=== PATIENT | male | born 1985 | race Caucasian/White ===

== ENCOUNTER 2024-08-07 09:42 | Outpatient (CLI) | payer OTHER, SELFPAY ==
--- NOTE | 2024-08-07 10:00 | CT_ITS ---
FINAL REPORT TECHNIQUE: Axial images through the pelvis were performed by computed tomography after the administration of IV contrast. Sagittal and coronal reconstruction images were performed. This study was performed with techniques to keep radiation doses as low as reasonably achievable (ALARA). Individualized dose reduction techniques using automated exposure control or adjustment of mA and/or kV according to the patient's size were employed. CLINICAL HISTORY: Left lower quad pain, LLQ mass? anterior left iliac crest area COMPARISON: None FINDINGS: There is no acute fracture or dislocation identified. The appendix appears unremarkable. There is no intrapelvic inflammation or fluid collection. There is a fat attenuation mass identified in the subcutaneous soft tissues of the left anterolateral pelvic wall. This mass measures 6.2 x 3.7 cm consistent with a lipoma and is well-seen on image 29 series 3. 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 There is endplate hypertrophy eccentric to the left. There is moderate left neural foraminal narrowing. 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 Degenerative changes without acute abnormality. Reviewed, Interpreted and Dictated by Nolan Tineo MD Transcribed by Shae Hernandez Authenticated and [facility]
[2024-08-07] MEDS: SODIUM CHLORIDE 0.9% 10ML SYR (RAD ONLY) 10 ML IV (10:08)
[2024-08-07] MEDS: IOPAMIDOL-370 (76%);100ML BOTTLE 75 ML IV (10:08)
== END 2024-08-07 23:59 | disposition home or self-care (01) ==
LOC: RAD 09:43
PROVIDERS: PCP Nurse Practitioner Family; Visit Provider Surgery
DX: D17.5 Benign lipomatous neoplasm of intra-abdominal organs (principal); M47.817 Spondylosis without myelopathy or radiculopathy, lumbosacral region; R10.32 Left lower quadrant pain
CPT/HCPCS: 72193; Q9967

== ENCOUNTER 2024-10-02 11:57 | Outpatient (CLI) | payer OTHER, SELFPAY ==
[2024-10-02 08:23] VITALS: BMI 30.9
--- OUTSIDE RECORDS SUMMARY | 2024-10-02 12:00 | XMS_ITS | Data Portability ---
Author Organization [place] - [facility] Address [address] [place] [address] Care Team Providers Care Automatic Presser Name Role Phone PRIMARY [facility] - EMPIRE Primary Care Provider Assessment Encounter Date Assessment Date Assessment LastModified by Organization Details LastModified Time 03/07/2021 03/07/2021 Treat at home with anti-inflammator y and/or pain medication and SIMENTAL for the first 24-48 hours after injury (Protect from further injury, Rest, Ice for 15-20 min every 60-90 min, Compression with elastic bandage, Elevation to prevent swelling.) After swelling and pain are reduced, patient may begin rehabilitation exercises to prevent stiffness, improve ROM, and restore tissue/joint flexibility and strength. Patient was encouraged to follow up if pain persists or if it is difficult to put weight on the injury after 2 weeks. Not available 03/07/2021 14:34:29 05/04/2021 05/04/2021 -will discuss results once we receive them. [email or web address] Not available 05/05/2021 15:49:32 02/09/2022 02/09/2022 Cough The patient presents dry cough. The patient's condition is worsening. Based on the findings today we will begin medication therapy. Further workup as below. Ddx includes: flu. Reviewed symptomatic care instructions, the expected course of these illnesses and explained that coughing can persist for some time. Provided precautions for signs of worsening disease and instructions on contacting us if symptoms worsen. [email or web address] Not available 02/09/2022 15:29:26 06/29/2022 06/29/2022 Patient presented for evaluation of painless mass on his left lower quadrant that is been present for the last 1 to 2 years. Patient states he has noticed a small increase in size over the last few months. He states he was told in the past this was a lipoma. Physical exam demonstrates a soft mobile mass consistent with lipoma. Patient was advised treatment options were to either do nothing or have surgical excision. Patient elected to continue without intervention has not called currently causing any issues. [email or web address] Not available 06/29/2022 14:30:18 Plan of Treatment Reminders Order Date Submit Date Provider Last Modified By Organization Details Last Modified Time Details Appointments None record ed. Lab rapid SARS CoV + SARS CoV 2 Ag, QL IA, respir atory specim en [facility], [address], [place], [address], 2 15:25:14 rapid flu (A+B) 2021 022 [email or web address] rt [facility], [address], [place], [address], 2 15:25:14 glucos e, finger stick, blood 2021 022 [facility], [address], [place], [address], 2 10:08:45 HbA1c (hemog lobin A1c), blood 2021 022 [facility], [address], [place], [address], 2 10:08:45 urinal ysis, dipsti ck 2021 022 camron [facility], [address] [facility], [place], [address], 2 16:11:49 semen analys is - fax result s to [phone] [address], [address] [place] [address], [place] Szym[place], [address], 2 10:17:33 testos terone , free + total, serum - fax result s to [phone] [facility], [address] [place] [address] [place], [address], 10:17:33 shbg (sex hormon e-bind ing globul in), serum - fax result s to [phone] [address] [facility], [address] [place] [address] [place], [address], 10:17:34 lh + FSH, serum - fax result s to [phone] [address] [facility], [address] [place] [address] [place], [address], 10:17:34 uric acid, serum or plasma 2020 021 KILLEEN [facility], [address], Chris [address], [place], [address], 08:20:05 BMP, serum or plasma 2020 021 COREY [facility], [address], Chris [address], [place], [address], 08:20:04 Referral None record ed. Procedures None record ed. Surgeries None record ed. Imaging XR, chest, 2 view - room 153 2021 [facility], [address], [place], [address], 12/02/202 2 16:07:19 XR, wrist, 2 view 2020 [email or web address] [facility], [address], [place], [address], 1 18:39:14 Medication Orders Bromfe d DM 2 mg-30 mg-10 mg/5 mL oral syrup 2021 022 [facility], [address] [place], [address], 3 13:09:16 Medrol (Drew) 4 mg tablet s in a dose pack 2021 [facility], [address] [place], [address], 3 13:09:25 albute rol sulfat e HFA 90 mcg/ac tuatio n aeroso l inhale r 2021 022 [facility], [address] [place], [address], 3 13:09:39 ceftri axone 1 gram soluti on for inject ion 2021 022 [email or web address] Not available 3 13:09:20 Solu-M edrol (PF) 125 mg/2 mL soluti on for inject ion 2021 022 [email or web address] Not available 3 13:09:30 naprox en 500 mg tablet 2020 [email or web address] [facility], [address] [place], [address], 2 14:27:21 Patient Targets Encounter Date Encounter Id Patient Goals Patient Target Last Modified By Organization Details Last Modified Time 02/09/2022 [id number] Avoid spread of infection, monitor for shortness of breath and dehydration . [email or web address] Not available 02/09/2022 15:29:40 Patient Instructions Encounter Date Encounter Id Patient Instructions Last Modified By Organization Details Last Modified Time 05/04/2021 [id number] semen analysis: care instructions [email or web address] Not available 05/04/2021 16:11:48 09/19/2021 [id number] high cholesterol: care instructions [email or web address] Not available 09/19/2021 10:08:45 hypoglycemia: care instructions [email or web address] Not available 09/19/2021 10:08:45 patient advised to eat regularly. breakfast and supper. snack in between schedule for an AWE. labs from showed hyperlipidemia. advised low cholesterol diet. needs lipids rechecked fasting [email or web address] Not available 09/19/2021 10:08:44 02/09/2022 [id number] influenza (flu): care instructions [email or web address] Not available 02/09/2022 15:25:15 Call if any questions or if symptoms worsen. [email or web address] Not available 02/09/2022 15:29:49 06/29/2022 [id number] lipoma: care instructions [email or web address] Not available 06/29/2022 14:30:04 Lipoma Call your doctor now or seek immediate medical care if: - You have signs of infection, such as: - Increased pain, swelling, warmth, or redness - Red streaks leading from the lipoma. - Pus draining from the lipoma. - A fever. Watch closely for changes in your health, and be sure to contact your doctor if: - The lipoma is growing or changing. - You do not get better as expected. [email or web address] Not available 06/29/2022 14:30:37 Discussed plan of care with the patient. Answered all of patient's questions. Patient agreeable to plan of care. [email or web address] Not available 06/29/2022 14:33:23 Reason for Referral None Reported. Results Created Date Observation Date Name Description Value Unit Range Abnormal Flag Note LastModifiedBy Organization Detail LastModifiedTime 03/07/20 21 03/08/2021 BASIC METAB OLIC PANEL (8) glucose 108 mg/dL 65-99 above high normal Not Available [facility] ([facility]) [address] [facility], [place], [address], 03/08/2021 08:20:04 03/07/20 21 03/08/2021 BASIC METAB OLIC PANEL (8) BUN 11 mg/dL 6-20 Not Available [facility] ([facility]) [address] [facility], [place], [address], 03/08/2021 08:20:04 03/07/20 21 03/08/2021 BASIC METAB OLIC PANEL (8) creatinine 0.73 mg/dL 0.76-1 .27 below low normal Not Available [facility] ([facility]) [address] [facility], [place], [address], 03/08/2021 08:20:04 03/07/20 21 03/08/2021 BASIC METAB OLIC PANEL (8) eGFR if nonafricn AM 121 mL/mi n/1.7 3 >59 Not Available [facility] ([facility]) [address] [facility], [place], [address], 03/08/2021 08:20:04 03/07/20 21 03/08/2021 BASIC METAB OLIC PANEL (8) eGFR if africn AM 140 mL/mi n/1.7 3 >59 In accor dance with recom menda tions from the NKF-A SN Task force , [facility] is in the proce ss of updat ing its eGFR calcu latio n to the 2020 CKD-E PI creat inine equat ion that estim ates kidne y funct ion witho ut a race varia ble. Not Available [facility] ([facility]) [address] [facility], [place], [address], 03/08/2021 08:20:04 03/07/20 21 03/08/2021 BASIC METAB OLIC PANEL (8) BUN/creatini ne ratio 15 9-20 Not Available [facility] ([facility]) [address] [facility], [place], [address], 03/08/2021 08:20:04 03/07/20 21 03/08/2021 BASIC METAB OLIC PANEL (8) sodium 138 mmol/ L 134-14 4 Not Available [facility] ([facility]) [address] [place], [address], 03/08/2021 08:20:04 03/07/20 21 03/08/2021 BASIC METAB OLIC PANEL (8) potassium 4.2 mmol/ L 3.5-5. 2 Not Available [facility] ([facility]) [address] [place], [address], 03/08/2021 08:20:04 03/07/20 21 03/08/2021 BASIC METAB OLIC PANEL (8) chloride 103 mmol/ L 96-106 Not Available [facility] ([facility]) [address] [place], [address], 03/08/2021 08:20:04 03/07/20 21 03/08/2021 BASIC METAB OLIC PANEL (8) carbon dioxide, total 21 mmol/ L 20-29 Not Available [facility] ([facility]) [address] [place], [address], 03/08/2021 08:20:04 03/07/20 21 03/08/2021 BASIC METAB OLIC PANEL (8) calcium 9.5 mg/dL 8.7-10 .2 Not Available [facility] ([facility]) [address] [place], [address], 03/08/2021 08:20:04 03/07/20 21 03/08/2021 URIC ACID uric acid 6.4 mg/dL 3.8-8. 4 Thera babita coon t for gout patie nts: <6.0 Not Available [facility] ([facility]) [address] [place], [address], 03/08/2021 08:20:05 05/04/19 22 05/04/2021 urina lysis , dipst ick Leukocytes Negati ve Not Available [facility] [address] [place], [address], 05/03/2021 09:05:19 05/04/19 22 05/04/2021 urina lysis , dipst ick Nitrite negati ve Not Available [facility] [address] [place], [address], 05/03/2021 09:05:19 05/04/19 22 05/04/2021 urina lysis , dipst ick Urobilinogen .2 Not Available [facility] [address] [place], [address], 05/03/2021 09:05:19 05/04/19 22 05/04/2021 urina lysis , dipst ick Protein Negati ve Not Available [facility] [address] [place], [address], 05/03/2021 09:05:19 05/04/19 22 05/04/2021 urina lysis , dipst ick pH 7.0 Not Available [facility] [address] [place], [address], 05/03/2021 09:05:19 05/04/19 22 05/04/2021 urina lysis , dipst ick Blood Negati ve Not Available [facility] [address] [place], [address], 05/03/2021 09:05:19 05/04/19 22 05/04/2021 urina lysis , dipst ick Specific [place] [address] [facility] [address] [place], [address], 05/03/2021 09:05:19 05/04/19 22 05/04/2021 urina lysis , dipst ick Ketone Negati ve Not Available [facility] [address] [place], [address], 05/03/2021 09:05:19 05/04/19 22 05/04/2021 urina lysis , dipst ick Bilirubin Negati ve Not Available [facility] [address] [place], [address], 05/03/2021 09:05:19 05/04/19 22 05/04/2021 urina lysis , dipst ick Glucose Negati ve Not Available [facility] [address] [place], [address], 05/03/2021 09:05:19 05/04/19 22 05/04/2021 urina lysis , dipst ick Appearance Clear Not Available [facility] [address] [place], [address], 05/03/2021 09:05:19 05/04/19 22 05/04/2021 urina lysis , dipst ick Color Yellow Not Available [facility] [address] [place], [address], 05/03/2021 09:05:19 09/20/19 22 09/19/2021 HbA1c (hemo globi n A1c), blood HbA1C 5.8 % Not Available [facility] [address], [place], [address], 09/19/2021 09:55:59 09/20/19 22 09/19/2021 gluco se, finge rstic k, blood Blood Glucose: mg/dl 100 Not Available [facility] [address], [place], [address], 09/19/2021 09:54:11 02/10/20 22 02/09/2022 rapid flu (A+B) Flu positi ve Not Available [facility] [address], [place], [address], 02/09/2022 14:54:20 02/10/20 22 02/09/2022 rapid flu (A+B) Type A Not Available [facility] [address], [place], [address], 02/09/2022 14:54:20 02/10/20 22 02/09/2022 rapid SARS CoV + SARS CoV 2 Ag, QL IA, respi rator y speci men SARS CoV antigen Negati ve Not Available [facility] [address], [place], [address], 02/09/2022 14:54:19 03/07/20 21 03/07/2021 XR, wrist , 2 view No observ ation record ed. [email or web address] [facility] [address], [place], [address], 03/09/2021 14:03:52 02/10/20 22 XR, chest , 2 view No observ ation record ed. [email or web address] [facility] [address], [place], [address], 02/09/2022 16:45:16 Result Notes None recorded. Problems Name Problem SNOMED Code Status Onset Date Resolution Date Notes Provider Name and Address Organization Details Recorded Time COVID-19 851874961 Active 021 Kirstie Stoddard MD [address], [place], [address], [place] - [facility] 1 13:15:51 Influenza caused by Influenza A virus 864030048 Active 022 Velma Marie APRN [address], [place], [address], [place] - [facility] 2 15:21:51 Acute bronchitis 32390190 Active 022 Velma Marie, [employer] [address], [place], [address], [place] - [facility] 2 15:23:55 Lipoma of skin 600875890 Active 023 Mazin Guille Salazarory, [employer] [address], [place], [address], [place] - [facility] 3 14:30:04 Problem Notes None recorded. Procedures Surgical History Date Name Laterality Status Provider Name and Address Organization Details Recorded Time 1 Diastolic B/P 80-89 mm Hg completed Radha Hennessy RN [address], [place], [address], [facility] - [facility] 05/05/2020 15:57:42 1 Systolic B/P 130-139 mm Hg completed Radha Hennessy RN [address], [place], [address], [facility] - [facility] 05/05/2020 15:57:37 1 A1C level 6.9 and below completed Radha Hennessy RN [address], [place], [address], [place] - [facility] 05/05/2020 15:57:46 Imaging Results None recorded. Procedure Notes None recorded. Medical Equipment None Reported. Allergies No known drug allergies Medications Name Sig Start Date Stop Date Status Note LastModified by Organization Details LastModified Time clindamycin HCl 300 mg capsule 05/05 completed Not Available Not Available Not Available ibuprofen 800 mg tablet 05/05 completed Not Available Not Available Not Available ceftriaxone 1 gram solution for injection Take 1 g every day by injection route for 1 day. 06/29 completed Not Available Not Available Not Available methylpredn isolone 4 mg tablets in a dose pack TAKE 6 TABS ON DAY 1, TAKE 5 TABS ON DAY 2, TAKE 4 TABS ON DAY 3, TAKE 3 TABS ON DAY 4, TAKE 2 TABS ON DAY 5, TAKE 1 ON DAY 6. TAKE WITH FOOD. 06/29 completed Not Available Not Available Not Available bromphenira mine-pseudo ephedrine-D M 2 mg-30 mg-10 mg/5 mL oral syrup TAKE 10 MILLILITE RS BY MOUTH EVERY 4 HOURS NEEDED. 06/29 completed Not Available Not Available Not Available naproxen 500 mg tablet TAKE (1) TABLET BY MOUTH TWICE A DAY WITH MEALS 05/04 completed Not Available Not Available Not Available Ventolin HFA 90 mcg/actuati on aerosol inhaler INHALE 2 PUFFS BY MOUTH EVERY 4 HOURS. 06/29 completed Not Available Not Available Not Available Solu-Medrol (PF) 125 mg/2 mL solution for injection Take 125 mg by injection route for 1 day. 06/29 completed Not Available Not Available Not Available Vitals Date Recorded Body height Body mass index (BMI) Body weight Respiratory rate Pain severity - 0-10 verbal numeric rating [Score] - Reported Oxygen saturation Oxygen saturation in Arterial blood by Pulse oximetry Heart rate Systolic And Diastolic Provider Name and Address Organization Details Last Updated DateTime 2 180.34 cm 34 kg/m2 469942. 54 g 14 /min 0 98 % 98 % 66 /min 136/80 mm[Hg] Vanessa Mir [place] - [facility] 2 14:29:23 Date Recorded Body height Body mass index (BMI) Body weight Respiratory rate Pain severity - 0-10 verbal numeric rating [Score] - Reported Heart rate Oxygen saturation Oxygen saturation in Arterial blood by Pulse oximetry Systolic And Diastolic Provider Name and Address Organization Details Last Updated DateTime 3 180.34 cm 34.4 kg/m2 287604. 32 g 16 /min 0 65 /min 97 % 97 % 120/72 mm[Hg] Bev José [place] - [facility] 3 13:11:36 Date Recorded Body height Body mass index (BMI) Body weight Body temperature Heart rate Oxygen saturation Oxygen saturation in Arterial blood by Pulse oximetry Respiratory rate Pain severity - 0-10 verbal numeric rating [Score] - Reported Systolic And Diastolic Provider Name and Address Organization Details Last Updated DateTime 2 180.34 cm 33.5 kg/m2 288467. 87 g 97.6 [degF] 65 /min 95 % 95 % 16 /min 0 125/80 mm[Hg] Tere Winn [place] - [facility] 2 09:53:52 Date Recorded Body height Body mass index (BMI) Body weight Pain severity - 0-10 verbal numeric rating [Score] - Reported Respiratory rate Oxygen saturation Oxygen saturation in Arterial blood by Pulse oximetry Heart rate Body temperature Systolic And Diastolic Provider Name and Address Organization Details Last Updated DateTime 2 180.34 cm 33.5 kg/m2 018344. 17 g 0 16 /min 95 % 95 % 72 /min 98.5 [degF] 115/74 mm[Hg] Rosalinda Tim [place] - [facility] 2 14:51:13 Date Recorded Body height Body mass index (BMI) Body weight Body temperature Heart rate Oxygen saturation Oxygen saturation in Arterial blood by Pulse oximetry Respiratory rate Pain severity - 0-10 verbal numeric rating [Score] - Reported Systolic And Diastolic Provider Name and Address Organization Details Last Updated DateTime 1 180.34 cm 34.1 kg/m2 005383. 64 g 97.7 [degF] 67 /min 99 % 99 % 18 /min 0 122/74 mm[Hg] Shelby Marie [place] - [facility] 1 14:16:24 Social History Question Answer Notes LastModified by Organizat ion Details LastModified Time Tobacco Smoking Status Never Smoker Radha Hennessy RN [address], [place], [address], [place] - [facility] 05/05/2020 15:35:47 Able To Swim? No [email or web address] Information not available 05/05/2020 Do You Have An Advance Directive? No [email or web address] Information not available 05/05/2020 Do You Wear A Helmet When Biking? No Information not available 05/05/2020 Are You Blind Or Do You Have Difficulty Seeing? No Information not available 05/04/2021 What Is Your Level Of Caffeine Consumption? Heavy [email or web address] Information not available 05/05/2020 How Much Tobacco Do You Chew? 2-4/day [email or web address] Information not available 05/05/2020 Are You Deaf Or Do You Have Serious Difficulty Hearing? No [email or web address] Information not available 05/04/2021 What Type Of Diet Are You Following? REGULAR [email or web address] Information not available 05/05/2020 Which Illicit Or Recreational Drugs Have You Used? Denies [email or web address] Information not available 05/05/2020 Hard Of Hearing Or Deaf In One Or Both Ears? Yes [email or web address] Information not available 05/05/2020 Legally Blind In One Or Both Eyes? No [email or web address] Information no t available 05/05/2020 Live Alone Or With Others? With Others [email or web address] Information not available 05/05/2020 What Was The Date Of Your Most Recent Tobacco Screening? 06/29/2022 [email or web address] Information not available 06/29/2022 How Many Children Do You Have? 2 [email or web address] Information not available 05/05/2020 Do You Use Protection During Sex? Usually [email or web address] Information not available 05/05/2020 What Is Your Relationship Status? [email or web address] Information not available 05/05/2020 Seat Belts Used Routinely Yes [email or web address] Information not available 05/05/2020 Are You Sexually Active? Yes Information not available 05/05/2020 Smoke Alarm In Home Yes [email or web address] Information not available 05/05/2020 Are You Passively Exposed To Smoke? Yes [email or web address] Information no t available 05/05/2020 General Stress Level Medium [email or web address] Information not available 05/05/2020 Do You Use Sunscreen Routinely? No [email or web address] Information not available 05/05/2020 On What Date Was Tobacco Cessation Counseling Provided? 08/29/2020 [email or web address] Information not available 08/29/2020 How Many Years Have You Smoked Tobacco? 32 [email or web address] Information not available 05/05/2020 Do You Have Difficulty Walking Or Climbing Stairs? No [email or web address] Information not available 05/04/2021 Sex: Male Functional Status Question Answer Note LastModified by Organizat ion Details LastModified Time What is your level of alcohol consumption? None Information not available 05/05/2020 Do you or have you ever used smokeless tobacco? Current snuff user [email or web address] Information not available 05/05/2020 Are you currently employed? Yes [email or web address] Information not available 05/05/2020 Do you have transportation difficulties? No [email or web address] Information not available 05/04/2021 Are you able to walk? YESWOREST [email or web address] Information not available 05/05/2020 Do you have difficulty doing errands alone? No Information not available 05/04/2021 Are you able to care for yourself independently? 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 No [email or web address] Information not available 05/04/2021 Do you or have you ever used e-cigarettes or vape? Never used electronic cigarettes [email or web address] Information not available 05/05/2020 What is your exercise level? Occasional [email or web address] Information not available 05/05/2020 Mental Status Question Answer Note LastModified by Organization D etails LastModified Time Do you have difficulty concentrating, remembering or making decisions? No [email or web address] Information no t available 05/04/2021 Family History Relationship Description Onset Age of this Age Resolved Age Notes LastModified by Organization Details LastModified Time Maternal Grandmother Diabetes mellitus [email or web address] Not available 2020 15:35:28 Mother Heart disease [email or web address] Not available 2020 15:35:40 Medical History Condition Response Pancreatitis N Coronary Artery Disease N Other N Gout N Atrial Fibrillation N congenital heart disease N Blood Diseases N Kidney Stones N Hyperthyroidism N Blood Transfusion N Rheumatoid arthritis N Erectile Dysfunction N amputation N Colonoscopy N Skin Lesions N COPD N Depression N Pneumonia N Incontinence N Murmur N Edema N Alzheimer's Disease N Migraine Headaches N Tobacco Abuse N Anxiety Disorder N Hemorrhoids N Muscle, Joint, or Bone Problems N Obesity N Vision or Eye Problems N Arthritis N Restless Leg Syndrome N Polyps N Infertility N Mental Disorder N Carpal Tunnel N Acid Reflux (GERD) N Cancer N Varicosities N Stroke N Tendonitis N Crohn's Disease N Hypercholesterolemia N Skin Cancer N Headaches N Fibromyalgia N Anal Fissure N Irritable Bowel Syndrome N Kidney Disease N Heart Problems N Ear or Hearing Problems N Hospitalizations N Gallstones N Kidney or Bladder Problems N Goiter N Acne N Skin Problems N Eating Disorder N Blevins's Esophagus N Hypertriglyceridemia N MRSA exposure N Constipation N Embolism N Vitamin B12 Deficiency N Deviated Septum N Tuberculosis N AIDS/HIV N Myocardial Infarction N Asthma N Mitral Valve Disorders N Vertigo N Hepatitis N Thyroid Cancer N Neuropathy N Pulmonary Embolism N History of DVT N Herniated Disc N Chronic Ear Infections N Chicken Pox N Autism Spectrum Disorder (ASD) N Von Willebrands Disease N Thrombophilias N Breast Cancer N Hernia N Plantar Fasciitis N Hospital Admission Other Than N Lung Disease N Hypothyroidism N Defects or Inherited Disease N Developmental or Behavioral Disorders N Breast Problem N Difficulty Swallowing N Ovarian Cyst N Anesthesia Complications N Testosterone Deficiency N Meniere's disease N Head Injury/Concussion N Interstitial Cystitis N Congenital Anomalies N Hypoglycemia N Blood clot N Vitamin D Deficiency N Cellulitis N Endometriosis N Fracture N Bladder or Kidney Problems N Colorectal Cancer N Liver Disease N Panic Disorder N Schizophrenia N Concussion N Spina Bifida N Allergies/Hayfever N Osteoarthritis N Parkinson's Disease N Disc Protrusion N STI N Esophagitis N Angina N Thyroid Problems N GI Problems N ADD/ADHD N Anemia N Multiple Sclerosis N Abnormal PAP N Lumbago N Mental Illness N Psychiatric Illness N Diabetes N Ovarian Cancer N Bedwetting N Degenerative Disc Disease N Seizures/Epilepsy N Congestive Heart Failure (CHF) N Hyperlipidemia N Syncope N Insomnia N Eczema N Abuse/Domestic Violence N Attention Deficient Disorder N Diverticulitis N Dementia N Ulcerative colitis N Cerebrovascular Disease N Depression N Guillain-[place] N Sleep Apnea N Aneurysm N Bronchitis N Heart Disease N Suicidal Ideation N Pre-Eclampsia N Hypertension N Osteoporosis N Immunizations Vaccine Type Date Status Note Provider Nam e and Address Organization Details Recorded Time Hep B, adolescent or pediatric 0 completed Rosalinda Tim null, [place] - [facility] 02/09/2022 14:51:37 Hep B, adolescent or pediatric 2 completed Rosalinda Tim [place] - [facility] 02/09/2022 14:51:37 MMR 0 completed Rosalinda Tim null[place] - [facility] 02/09/2022 14:51:37 Hep B, adolescent or pediatric 0 completed Rosal[place] Tim [place] [facility] 02/09/2022 14:51:37 Td (adult), 2 Lf tetanus toxoid, preservative free, adsorbed 3 completed Rosalinda Tim null[place] - [facility] 02/09/2022 14:51:37 Past Encounters Encounter ID Performer Location Encounter Start Date Encounter Closed Date Diagnosis/Indication Diagnosis SNOMED-CT Code Diagnosis ICD10 Code Diagnosis Note [id number] Brice Lucio PA-C [facility] [address] [place] [address] 05/05/2020 15:23:44 05/05/2020 17:05:11 Body mass index 30+ - obesity 601398488 Z68.33 Increased frequency of urination 581749395 R35.0 Hyperglycemia 00643429 R 73.9 Elevated blood-pressure reading without diagnosis of hypertension 950978848 R03.0 User of sm okeless tobacco 372834337 Z72.0 Lipoma of skin 433105158 D17.30 [id number] Celine Franco APRN [facility] [address] [address] 08/29/2020 15:16:24 08/29/2020 16:46:36 Mass of skin 451814235 R22.9 suspected lipoma Lipoma of skin 572024179 D17.30 [id number] Kirstie Stoddard MD [facility] [address] [place] [address] 11/07/2020 11:45:20 11/07/2020 12:28:07 Viral screening 876906694 Z11.52 COVID-19 522406536 U07.1 offered monoclonal antibody treatment; he declines now as he feels he is getting better. Encouraged him to call/seek tx with any worsening at all. Discussed we cannot use monoclonal therapy if someone has worsened to the point of requiring oxygen or if it is more than 10 days from the onset of symptoms. Influenza caused by Influenza B virus 96881760 J10.1 out of the window for tx with tamiflu [id number] Celine Franco APRN [facility] [address] [address] 03/07/2021 13:51:36 03/07/2021 14:44:49 Pain of wrist region 68888242 M25.532 Tendinitis of left wrist region 2678884245 1149704 M67.394 [id number] Esther Blair [facility] [address] [place] [address] 05/04/2021 14:20:22 05/04/2021 16:33:14 Body mass index 30+ - obesity 767459184 Z68.34 34 Fatigue 87909540 R53.83 Fertility problem 047672 06 N46.9 [id number] Dhruv Whelan MD [facility] [address] [place] [address] 09/19/2021 09:31:27 09/19/2021 10:31:02 [facility] [id number] E16.2 [facility] [id number] E78.5 [id number] Velma sotelo, [facility] [address] [place] [address] 02/09/2022 14:20:11 02/09/2022 16:05:13 Viral screening 597492121 Z11.59 Positive for flu A, discussed with patient. Influenza caused by Influenza A virus 066526894 J09.X2 Advised to increase liquids, rest this weekend. Will call patient with xray results when available. Acute bronchitis 6313363 2 J20.9 acute. [id number] Mazin Pérez, [facility] [address] [place] [address] [place] [address] 06/29/2022 12:56:20 06/29/2022 13:58:24 Lipoma of skin 424560957 D17.1 Establishe d DiagnosisM anagement: Patient able to schedule for excision at his [facility] up as needed. Health Concerns Section Related Observation LastModified by Organization Detai ls LastModified Time None Recorded Concern Status LastModified by Organization Details LastModified Time None Recorded Advance Directives Directive N: Payers Insurance Date Sequence Insurance Name Policy Number Policy Thomason Covered Member ID Thomason Member ID Guarantor Name 07/26/2022 1 [employer] [place] (MEDICAID HMO) Jono Soto [id number] Jono Soto 06/19/2021 2 [place] [id number] Jono [id number] Jono Soto 07/26/2022 2 [place] [id number] Jono [id number] Jono Soto 07/26/2022 [place] Jono Soto [id number] Jono Soto Notes Date Note Type Note Provider Name and Address Organization Details Recorded Time 03/07/2021 text/html 35 y/o male present today for left wrist pain. Patient denies any injury, pain started yesterday evening. Difficulty lifting or holding things with left hand right now. Denies any numbness, tingling, loss of sensation, change in color or temperature of hand/wrist. Celine Salvador [facility], [place] - [facility] 03/07/2021 14:37:46 05/04/2021 text/html problems-MaleReport ed by PatientGU ProblemsFor context, patient reportsnot sexually active(no known trauma). For associated symptoms, patient reportsno penile lesions/sores,no scrotal lesions/sores,no penile discharge,no flank pain,no jaundice,no blood in the urine,no pain during urination, andno impotence. reports he is concerned about being infertile. states his ex- and he were never able to have children. also states that his current had her tubes tied, and they were talking about her getting that reversed, but wanted to check to see if he was fertile first. reports was tested once and told sperm count was low. Esther Blair, [employer] [address], [place], [address], [facility] - [facility] 05/05/2021 15:49:53 09/19/2021 text/html 35 y/o male presents in office today with cc of sugar drop with vision problem ,patient reports that he is very busy working that he forgets to eat Dhruv Whelan MD [address], [place], [address], [facility] - [facility] 09/19/2021 10:09:18 02/09/2022 text/html ROS as noted in the HPI 36 y/o m presents today with sick children for cough, congestion, fever, headache, body aches and shortness of breath for 5 days. Feeling worse and requests chest xray. Velma truong, [employer] [address], [place], [address], [facility] - [facility] 02/09/2022 15:50:42 06/29/2022 text/html ROS as noted in the HPI Skin Mass Painless - Onset was 1-2 years ago, due- Symptoms described as painless skin mass located left abdomen- Occurs continous- Severity is mild- Aggravating factors: none- Alleviating factors: none- Negative ROS: No fever, skin changes, unintentional weight loss Mazin Pérez, [employer] [address], [place], [address], [place] - [facility] 06/29/2022 14:33:44
--- OUTSIDE RECORDS SUMMARY | 2024-10-02 12:00 | XMS_ITS | Continuity of Care Document ---
Author Organization [place] - [employer] [facility] [place], [facility] Address [address] [place] [address] Assessment Encounter Date Assessment Date Assessment LastModified by Organization Details LastModified Time 09/18/2024 09/18/2024 Monitor BP at home. We will request eye exam. Updated tdap today. Continue lifestyle changes. Follow up in 2 months to recheck BP and ANGELO's, he will keep BP log in meantime. Not available 09/24/2024 15:02:26 Plan of Treatment Reminders Order Date Submit Date Provider Last Modified By Organization Details Last Modified Time Details Appointments FOLLOW UP 30 2024 03:30P M Kemi Carlos Not available Not available Not available Lab glucose, fingerst ick, blood 2024 07 025 [facility] [place], [facility], [address] [place] [address], [place], [address], 09/18/2024 15:00:45 Referral None recorded . Procedures None recorded . Surgeries None recorded . Imaging None recorded . Medication Orders None recorded . Patient TargetsNo targets recorded. Patient Instructions Encounter Date Encounter Id Patient Instructions Last Modified By Organization Details Last Modified Time 09/18/2024 [id number] headache: care instructions Not available 09/18/2024 15:00:45 body mass index: care instructions Not available 09/24/2024 15:02:05 learning about healthy weight Not available 09/24/2024 15:02:05 Reason for Referral None Reported. Results Created Date Observation Date Name Description Value Unit Range Abnormal Flag Note LastModifiedBy Organization Detail LastModifiedTime 09/19/1909/18/2024 gluco se, finge rstic k, blood Blood Glucose: mg/dl 87 Not Available [address], [place], [address], 09/18/2024 14:46:22 Result Notes None recorded. Problems Name Problem SNOMED Code Status Onset Date Resolution Date Notes Provider Name and Address Organization Details Recorded Time Increased frequency of urination 296766304 Active 025 Kemi Carlos NP [address] [place] [address], [address], [employer] 5 16:20:55 Skin lesion 66937673 Active 025 Kemi Carlos NP [address] [place] [address], [address], [employer] 16:32:19 Headache 76885319 Active 025 Kemi Carlos NP [address] [place] [address], [address], [employer] 5 16:11:51 Polyuria 74237760 Active 025 Kemi Carlos NP [address] [place] [address], [address], [employer] 14:54:41 Problem Notes None recorded. Medical Equipment None Reported. Allergies No known drug allergies Medications Not known to be on any medication Vitals Date Recorded Body height Body mass index (BMI) Body weight Heart rate Oxygen saturation Oxygen saturation in Arterial blood by Pulse oximetry Systolic And Diastolic Provider Name and Address Organization Details Last Updated DateTime 5 177.8 cm 34.2 kg/m2 892692. 78 g 54 /min 98 % 98 % 133/71 mm[Hg] Mary Franco [employer] 14:46:03 Social History Question Answer Notes LastModified by Organizat ion Details LastModified Time Tobacco Smoking Status Never Smoker Mary hollingsworth [employer] 07/06/2024 15:54:01 Do You Have An Advance Directive? No [email or web address] Information n ot available 07/06/2024 Is Your Home Air Conditioned? Yes [email or web address] Information not available 07/06/2024 Do You Wear A Helmet When Biking? No Information not available 07/06/2024 Are You Blind Or Do You Have Difficulty Seeing? Yes [email or web address] Information n ot available 07/06/2024 What Is Your Level Of Caffeine Consumption? Heavy [email or web address] Information not available 07/06/2024 What Type Of Apartment Rental Clerk Do You Use? None Information not available 07/06/2024 In The 14 Days Before Symptom Onset, Have You Had Close Contact With A Laboratory-confirm ed COVID-19 While That Case Was Ill? No [email or web address] Information n ot available 07/06/2024 In The 14 Days Before Symptom Onset, Have You Had Close Contact With A Person Who Is Under Investigation For COVID-19 While That Person Was Ill? No [email or web address] Information not available 07/06/2024 Have You Been To An Area Known To Be High Risk For COVID-19? No [email or web address] Information not available 07/06/2024 Are You Deaf Or Do You Have Serious Difficulty Hearing? Yes [email or web address] Information not available 07/06/2024 What Type Of Diet Are You Following? REGULAR Information n ot available 07/06/2024 What Is The Highest Grade Or Level Of School You Have Completed Or The Highest Degree You Have Received? FB30442-0 [email or web address] Information not available 07/06/2024 Who Is Your Employer? [employer] [email or web address] Information not available 07/06/2024 Have There Been Any Changes To Your Family Or Social Situation? No [email or web address] Information no t available 07/06/2024 Are There Any Guns Present In Your Home? Yes [email or web address] Information not available 07/06/2024 Which Of Your Hands Is Dominant? Right [email or web address] Information n ot available 07/06/2024 What Is Your Home Situation? Both Parents [email or web address] Information not available 07/06/2024 Do You Have A Medical Power Of Game Author? No [email or web address] Information not available 07/06/2024 What Was The Date Of Your Most Recent Tobacco Screening? 09/18/2024 [email or web address] Information not available 09/18/2024 Are There Any Occupational Health Risks Where You Work? Yes [email or web address] Information not available 07/06/2024 Do You Have Any Pets? Yes Information not available 07/06/2024 Do You Use Protection During Sex? No Information not available 07/06/2024 What Is Your Relationship Status? Information not available 07/06/2024 Have You Repeated Any Grades? Yes Information not available 07/06/2024 Do You Use Your Seat Belt Or Car Seat Routinely? Yes Information not available 07/06/2024 Are You Sexually Active? Yes [email or web address] Information not available 07/06/2024 Do You Have Any Siblings? Yes [email or web address] Information not available 07/06/2024 Do You Have Smoke And Carbon Monoxide Detectors In Your Home? Yes [email or web address] Information not available 07/06/2024 Are You Passively Exposed To Smoke? No Information no t available 07/06/2024 Are There Any Smokers In Your House? No [email or web address] Information not available 07/06/2024 Do You Participate In Social Media? Yes [email or web address] Information not available 07/06/2024 What Types Of Sporting Activities Do You Participate In? Coon Hunting [email or web address] Information not available 07/06/2024 Do You Use Sunscreen Routinely? No Information not available 07/06/2024 Have You Recently Traveled Abroad? No Information not available 07/06/2024 Do You Have Difficulty Walking Or Climbing Stairs? No [email or web address] Information not available 07/06/2024 Do You Have Any Dietary Restrictions? No [email or web address] Information not available 07/06/2024 Sex: Unknown Functional Status Question Answer Note LastModified by Organizat ion Details LastModified Time Do you use any illicit or recreational drugs? No [email or web address] Information not available 07/06/2024 Do you or have you ever used any other forms of tobacco or nicotine? Yes [email or web address] Information not available 07/06/2024 What is your level of alcohol consumption? None Information not available 07/06/2024 Do you or have you ever used smokeless tobacco? Current snuff user 30+ years. Information not available 07/06/2024 Are you currently employed? Yes [email or web address] Information not available 07/06/2024 Do you have transportation difficulties? No Information not available 07/06/2024 Are you able to walk? YESWOREST [email or web address] Information not available 07/06/2024 Do you have difficulty doing errands alone? No [email or web address] Information not available 07/06/2024 Are you able to care for yourself independently? Yes [email or web address] Information not available 07/06/2024 Do you have difficulty dressing, bathing, grooming, or toileting? No [email or web address] Information not available 07/06/2024 Do you or have you ever used e-cigarettes or vape? Never used electronic cigarettes [email or web address] Information not available 07/06/2024 What is your exercise level? None [email or web address] Information not available 07/06/2024 Mental Status Question Answer Note LastModified by Organizat ion Details LastModified Time Do you feel stressed (tense, restless, nervous, or anxious, or unable to sleep at night)? [id number] Information not available 07/06/2024 Do you have difficulty concentrating, remembering or making decisions? No [email or web address] Information no t available 07/06/2024 Are you or have you been involved with bullying? No Information not available 07/06/2024 Family History Relationship Description Onset Age of this Age Resolved Age Notes LastModified by Organization Details LastModified Time Mother Hypercholest erolemia [email or web address] Not available 2024 15:54:01 Mother Hypertensive disorder [email or web address] Not available 2024 15:54:01 Unspecified Relation Heart disease [email or web address] Not available 2024 15:54:01 Maternal Grandmother Diabetes mellitus Not available 2024 15:54:01 Maternal Grandfather Alzheimer's disease Not available 2024 15:54:01 Medical History Condition Response Emergency room visit since last appointm ent. N Hospitalizations N Immunizations Vaccine Type Date Status Note Provider Nam e and Address Organization Details Recorded Time Tdap completed Mary hollingsworth, [place] - [employer] 09/18/2024 15:13:21 MMR 0 completed Not Available [facility] 09/18/2024 14:27:40 Hep B, adolescent or pediatric 0 completed Not Available [facility] 09/18/2024 14:27:40 Hep B, adolescent or pediatric 0 completed Not Available [facility] 09/18/2024 14:27:40 Hep B, adolescent or pediatric 2 completed Not Available [facility] 09/18/2024 14:27:40 Td (adult), 2 Lf tetanus toxoid, preservative free, adsorbed 3 completed Not Available [facility] 09/18/2024 14:27:40 Past Encounters Encounter ID Performer Location Encounter Start Date Encounter Closed Date Diagnosis/Indication Diagnosis SNOMED-CT Code Diagnosis ICD10 Code Diagnosis Note [id number] Kemi Carlos NP [address] [address] 09/18/2024 14:26:47 09/18/2024 15:04:09 Headache 09512832 R51.9 Polyuria 50043932 R35.89 Immunization due 5520607 08 Z23 Body mass index 30+ - obesity 735678636 Z68.34 Health Concerns Section Related Observation LastModified by Organization Detai ls LastModified Time None Recorded Concern Status LastModified by Organization Details LastModified Time None Recorded Payers Encounter Date Sequence Insurance Name Policy Number Policy Thomason Covered Member ID Thomason Member ID Guarantor Name 09/18/2024 1 RAMIROJORDAN [id number] Jono Soto [id number] Jono Soto Notes Date Note Type Note Provider Name and Address Organization Details Recorded Time 09/18/2024 text/html Patient presents for follow up. He is doing very well. He states his headaches have improved significantly. He cut sugary beverages (Alena 8) from his diet completely and he has not had any more episodes of dizziness or hypoglycemia. He has also lost 15 lb.He had a normal eye exam, but they thought he may actually have some HTN based on findings. Kemi Carlos NP [address] [place] [address], [address], [facility] [employer] 09/24/2024 15:02:57
--- OUTSIDE RECORDS SUMMARY | 2024-10-02 12:00 | XMS_ITS | Data Portability ---
Author Organization [employer] [facility] Address [address] [place] [address] Assessment Encounter Date Assessment Date Assessment LastModified by Organization Details LastModified Time 07/06/2024 07/06/2024 Patient to return for fasting labs. Referral to general surgery to evaluate lesion/mass for removal. Recommended scheduling eye exam. Keep ANGELO diary to see if there are any triggers for visual changes and headaches. UA negative. Encouraged patient to cut back on sugary beverages in diet. Follow up to be planned with lab results. Not available 07/09/2024 16:13:03 09/18/2024 09/18/2024 Monitor BP at home. We will request eye exam. Updated tdap today. Continue lifestyle changes. Follow up in 2 months to recheck BP and ANGELO's, he will keep BP log in meantime. Not available 09/24/2024 15:02:26 Plan of Treatment Reminders Order Date Submit Date Provider Last Modified By Organization Details Last Modified Time Details Appointments FOLLOW UP 30 2024 03:30P Kemi Mccall Not available Not available Not available Lab glucose, fingersti ck, blood [address], [place], [address], 09/18/2024 15:00:45 CMP, serum or plasma 2024 025 [facility], [address] [place] [address], [place], [address], 07/12/2024 10:07:31 CBC w/ auto diff 2024 025 [facility] [address] [place] [address], [id number], 07/12/2024 10:07:30 urinalysi s, dipstick [address], [address], 07/06/2024 16:37:20 lipid panel, serum 2024 025 [facility]), [address] [place] [address], [id number], 07/12/2024 10:07:31 Hepatitis C IgG Ab, qual, serum 2024 025 [facility]), [address] [place] [address], [id number], 07/12/2024 10:07:32 HbA1c (hemoglob in A1c), blood 2024 025 [facility]), [address] [place] [address], [id number], 07/12/2024 10:07:32 HIV 1 + 2, meaningfu l use set 2024 025 [facility]), [address] [place] [address], [id number], 07/12/2024 10:07:33 Referral general surgeon referral - first available appt 2024 025 COREY Alberto Reyes Jr, [address], [address], [place], [address], 07/28/2024 10:40:19 Procedures None recorded. Surgeries None recorded. Imaging None recorded. Medication Orders None recorded. Patient TargetsNo targets recorded. Patient Instructions Encounter Date Encounter Id Patient Instructions Last Modified By Organization Details Last Modified Time 09/18/2024 [id number] headache: care instructions Not available 09/18/2024 15:00:45 body mass index: care instructions Not available 09/24/2024 15:02:05 learning about healthy weight Not available 09/24/2024 15:02:05 Reason for Referral General Surgeon Referral for Skin lesion first available appt Referring Physician: Kemi Carlos, Family Medicine, Encounter Date: 07/06/2024 Results Created Date Observation Date Name Description Value Unit Range Abnormal Flag Note LastModifiedBy Organization Detail LastModifiedTime 07/07/19 25 07/06/2024 urina lysis , dipst ick Leukocytes Negati ve Not Available [address], [address], 07/06/2024 16:20:59 07/07/19 25 07/06/2024 urina lysis , dipst ick Nitrite negati ve Not Available [address], [address], 07/06/2024 16:20:59 07/07/19 25 07/06/2024 urina lysis , dipst ick Urobilinogen .2 Not Available [address], [address], 07/06/2024 16:20:59 07/07/19 25 07/06/2024 urina lysis , dipst ick Protein Negati ve Not Available [address], [address], 07/06/2024 16:20:59 07/07/19 25 07/06/2024 urina lysis , dipst ick pH 7.0 Not Available [address], [address], 07/06/2024 16:20:59 07/07/19 25 07/06/2024 urina lysis , dipst ick Blood Negati ve Not Available [address], [address], 07/06/2024 16:20:59 07/07/19 25 07/06/2024 urina lysis , dipst ick Specific [place] 1.010 Not Available [address], [address], 07/06/2024 16:20:59 07/07/19 25 07/06/2024 urina lysis , dipst ick Ketone Negati ve Not Available [address], [address], 07/06/2024 16:20:59 07/07/19 25 07/06/2024 urina lysis , dipst ick Bilirubin Negati ve Not Available [address], [address], 07/06/2024 16:20:59 07/07/19 25 07/06/2024 urina lysis , dipst ick Glucose Negati ve Not Available [address], [address], 07/06/2024 16:20:59 07/07/19 25 07/06/2024 urina lysis , dipst ick Appearance Clear Not Available [address], [address], 07/06/2024 16:20:59 07/07/19 25 07/06/2024 urina lysis , dipst ick Color Pale Yellow Not Available [address], [address], 07/06/2024 16:20:59 07/12/19 25 07/12/2024 CBC WITH DIFFE RENTI AL/PL ATELE T WBC 6.6 x10e3 /uL 3.4-10 .8 normal Not Available [facility] ([facility]) [address] [place], [address], 07/12/2024 10:07:30 07/12/19 25 07/12/2024 CBC WITH DIFFE RENTI AL/PL ATELE T RBC 5.42 x10e6 /uL 4.14-5 .80 normal Not Available [facility] ([facility]) [address] [place], [address], 07/12/2024 10:07:30 07/12/1907/12/2024 CBC WITH DIFFE RENTI AL/PL ATELE T hemoglobin 15.5 g/dL 13.0-1 7.7 normal Not Available [facility] ([facility]) [address] [place], [address], 07/12/2024 10:07:30 07/12/1907/12/2024 CBC WITH DIFFE RENTI AL/PL ATELE T hematocrit 46.3 % 37.5-5 1.0 normal Not Available [facility] ([facility]) [address] [place], [address], 07/12/2024 10:07:30 07/12/1907/12/2024 CBC WITH DIFFE RENTI AL/PL ATELE T MCV 85 fL 79-97 normal Not Available [facility] ([facility]) [address] [place], [address], 07/12/2024 10:07:30 07/12/1907/12/2024 CBC WITH DIFFE RENTI AL/PL ATELE T MCH 28.6 pg 26.6-3 3.0 normal Not Available [facility] ([facility]) [address] [place], [address], 07/12/2024 10:07:30 07/12/19 25 07/12/2024 CBC WITH DIFFE RENTI AL/PL ATELE T MCHC 33.5 g/dL 31.5-3 5.7 normal Not Available [facility] ([facility]) [address] [place], [address], 07/12/2024 10:07:30 07/12/19 25 07/12/2024 CBC WITH DIFFE RENTI AL/PL ATELE T RDW 12.8 % 11.6-1 5.4 Not Available [facility] ([facility]) [address] [facility], [place], [address], 07/12/2024 10:07:30 07/12/19 25 07/12/2024 CBC WITH DIFFE RENTI AL/PL ATELE T platelets 319 x10e3 /uL 150-45 0 normal Not Available [facility] ([facility]) [address] [place], [address], 07/12/2024 10:07:30 07/12/19 25 07/12/2024 CBC WITH DIFFE RENTI AL/PL ATELE T neutrophils 53 % not estab. normal Not Available [facility] ([facility]) [address] [facility], [place], [address], 07/12/2024 10:07:30 07/12/19 25 07/12/2024 CBC WITH DIFFE RENTI AL/PL ATELE T lymphs 32 % not estab. normal Not Available [facility] ([facility]) [address] [place], [address], 07/12/2024 10:07:30 07/12/19 25 07/12/2024 CBC WITH DIFFE RENTI AL/PL ATELE T monocytes 10 % not estab. normal Not Available [facility] ([facility]) [address] [facility], [place], [address], 07/12/2024 10:07:30 07/12/19 25 07/12/2024 CBC WITH DIFFE RENTI AL/PL ATELE T eos 3 % not estab. normal Not Available [facility] ([facility]) [address] [place], [address], 07/12/2024 10:07:30 07/12/19 25 07/12/2024 CBC WITH DIFFE RENTI AL/PL ATELE T basos 1 % not estab. normal Not Available [facility] ([facility]) [address] [facility], [place], [address], 07/12/2024 10:07:30 07/12/19 25 07/12/2024 CBC WITH DIFFE RENTI AL/PL ATELE T immature cells DOCK GUARD Not Available [facility]) [address] [place], [address], 07/12/2024 10:07:30 07/12/19 25 07/12/2024 CBC WITH DIFFE RENTI AL/PL ATELE T neutrophils (absolute) 3.5 x10e3 /uL 1.4-7. 0 normal Not Available [facility] ([facility]) [address] [place], [address], 07/12/2024 10:07:30 07/12/19 25 07/12/2024 CBC WITH DIFFE RENTI AL/PL ATELE T lymphs (absolute) 2.1 x10e3 /uL 0.7-3. 1 normal Not Available [facility] ([facility]) [address] [place], [address], 07/12/2024 10:07:30 07/12/19 25 07/12/2024 CBC WITH DIFFE RENTI AL/PL ATELE T monocytes(ab solute) 0.7 x10e3 /uL 0.1-0. 9 normal Not Available [facility] ([facility]) [address] [place], [address], 07/12/2024 10:07:30 07/12/19 25 07/12/2024 CBC WITH DIFFE RENTI AL/PL ATELE T eos (absolute) 0.2 x10e3 /uL 0.0-0. 4 normal Not Available [facility] ([facility]) [address] [place], [address], 07/12/2024 10:07:30 07/12/19 25 07/12/2024 CBC WITH DIFFE RENTI AL/PL ATELE T baso (absolute) 0.0 x10e3 /uL 0.0-0. 2 normal Not Available [facility] ([facility]) [address] [facility], [place], [address], 07/12/2024 10:07:30 07/12/19 25 07/12/2024 CBC WITH DIFFE RENTI AL/PL ATELE T immature granulocytes 1 % not estab. Not Available [facility] ([facility]) [address] [facility], [place], [address], 07/12/2024 10:07:30 07/12/19 25 07/12/2024 CBC WITH DIFFE RENTI AL/PL ATELE T immature grans (abs) 0.0 x10e3 /uL 0.0-0. 1 Not Available [facility] ([facility]) [address] [place], [address], 07/12/2024 10:07:30 07/12/19 25 07/12/2024 CBC WITH DIFFE RENTI AL/PL ATELE T NRBC DOCK GUARD Not Available [facility] ([facility]) [address] [place], [address], 07/12/2024 10:07:30 07/12/19 25 07/12/2024 CBC WITH DIFFE RENTI AL/PL ATELE T hematology comments: DOCK GUARD Not Available [facility] ([facility]) [address] [place], [address], 07/12/2024 10:07:30 07/12/19 25 07/12/2024 COMP. METAB OLIC PANEL (14) glucose 92 mg/dL 70-99 normal Not Available [facility] ([facility]) [address], [place], [address], 07/12/2024 10:07:31 07/12/19 25 07/12/2024 COMP. METAB OLIC PANEL (14) BUN 13 mg/dL 6-20 normal Not Available [facility] ([facility]) [address], [place], [address], 07/12/2024 10:07:31 07/12/19 25 07/12/2024 COMP. METAB OLIC PANEL (14) creatinine 1.00 mg/dL 0.76-1 .27 normal Not Available [facility] ([facility]) [address] [place], [address], 07/12/2024 10:07:31 07/12/19 25 07/12/2024 COMP. METAB OLIC PANEL (14) eGFR 99 mL/mi n/1.7 3 >59 normal Not Available [facility] ([facility]) [address], [place], [address], 07/12/2024 10:07:31 07/12/19 25 07/12/2024 COMP. METAB OLIC PANEL (14) BUN/creatini ne ratio 13 9-20 normal Not Available [facility]) [address] [facility] [place], [address], 07/12/2024 10:07:31 07/12/19 25 07/12/2024 COMP. METAB OLIC PANEL (14) sodium 140 mmol/ L 134-14 4 normal Not Available [facility] ([facility]) [address] [facility] [place], [address], 07/12/2024 10:07:31 07/12/19 25 07/12/2024 COMP. METAB OLIC PANEL (14) potassium 4.5 mmol/ L 3.5-5. 2 normal Not Available [facility] ([facility]) [address] [facility] [place], [address], 07/12/2024 10:07:31 07/12/19 25 07/12/2024 COMP. METAB OLIC PANEL (14) chloride 102 mmol/ L 96-106 normal Not Available [facility] ([facility] [address] [place], [address], 07/12/2024 10:07:31 07/12/19 25 07/12/2024 COMP. METAB OLIC PANEL (14) carbon dioxide, total 22 mmol/ L 20-29 normal Not Available [facility] ([facility] [address] [facility], [address], 07/12/2024 10:07:31 07/12/19 25 07/12/2024 COMP. METAB OLIC PANEL (14) calcium 10.0 mg/dL 8.7-10 .2 normal Not Available [facility] ([facility]) [address] [facility] [place], [address], 07/12/2024 10:07:31 07/12/19 25 07/12/2024 COMP. METAB OLIC PANEL (14) protein, total 7.3 g/dL 6.0-8. 5 normal Not Available [facility] ([facility]) [address] [facility] [place], [address], 07/12/2024 10:07:31 07/12/19 25 07/12/2024 COMP. METAB OLIC PANEL (14) albumin 4.5 g/dL 4.1-5. 1 normal Not Available [facility] ([facility]) [address] [facility] [place], [address], 07/12/2024 10:07:31 07/12/19 25 07/12/2024 COMP. METAB OLIC PANEL (14) globulin, total 2.8 g/dL 1.5-4. 5 Not Available [facility] ([facility]) [address] [facility] [place], [address], 07/12/2024 10:07:31 07/12/19 25 07/12/2024 COMP. METAB OLIC PANEL (14) bilirubin, total 0.4 mg/dL 0.0-1. 2 normal Not Available [facility] ([facility]) [address] [place], [address], 07/12/2024 10:07:31 07/12/19 25 07/12/2024 COMP. METAB OLIC PANEL (14) alkaline phosphatase 101 IU/L 44-121 normal Not Available [facility]) [address] [place], [address], 07/12/2024 10:07:31 07/12/19 25 07/12/2024 COMP. METAB OLIC PANEL (14) AST (SGOT) 17 IU/L 0-40 normal Not Available [facility] ([facility]) [address] [place], [address], 07/12/2024 10:07:31 07/12/19 25 07/12/2024 COMP. METAB OLIC PANEL (14) ALT (SGPT) 32 IU/L 0-44 normal Not Available [facility] ([facility]) [address] [place], [address], 07/12/2024 10:07:31 07/12/19 25 07/12/2024 LIPID PANEL cholesterol, total 226 mg/dL 100-19 9 above high normal Not Available [facility] ([facility]) [address] [place], [address], 07/12/2024 10:07:31 07/12/19 25 07/12/2024 LIPID PANEL triglyceride s 158 mg/dL 0-149 above high normal Not Available [facility] ([facility]) [address] [place], [address], 07/12/2024 10:07:31 07/12/19 25 07/12/2024 LIPID PANEL HDL cholesterol 35 mg/dL >39 below low normal Not Available [facility] ([facility]) [address] [facility], [place], [address], 07/12/2024 10:07:31 07/12/19 25 07/12/2024 LIPID PANEL VLDL cholesterol dariusz 29 mg/dL 5-40 Not Available [facility]) [address] [facility], [place], [address], 07/12/2024 10:07:31 07/12/19 25 07/12/2024 LIPID PANEL LDL chol calc (rust) 162 mg/dL 0-99 above high normal Not Available [facility] ([facility]) [address] [facility], [place], [address], 07/12/2024 10:07:31 07/12/19 25 07/12/2024 LIPID PANEL LDL calc comment: DOCK GUARD Not Available [facility]) [address] [facility], [place], [address], 07/12/2024 10:07:31 07/12/19 25 07/12/2024 HCV ANTIB RG CASCA DE(PC R/GEN O) HCV Ab Non Reacti ve non reacti ve Not Available [facility] ([facility]) [address] [facility], [place], [address], 07/12/2024 10:07:32 07/12/19 25 07/12/2024 HCV ANTIB RG CASCA DE(PC R/GEN O) interpretati on: Commen t Not infec jason with HCV unles s early or acute infec tion is suspe cted (whic h may be delay ed in an immun ocomp romis ed indiv idual ), or other evide nce exist s to indic ate HCV infec tion. Not Available [facility] ([facility]) [address] [facility], [place], [address], 07/12/2024 10:07:32 07/12/19 25 07/12/2024 HEMOG LOBIN A1C hemoglobin A1C 5.8 % 4.8-5. 6 above high normal Predi abete s: 5.7 - 6.4 Diabe navjot: >6.4 Glyce suhail contr ol for adult s with diabe navjot: <7.0 Not Available [facility] ([facility]) [address] [facility], [place], [address], 07/12/2024 10:07:32 07/12/19 25 07/12/2024 HIV AB/P2 4 AG WITH REFLE X HIV Ab/P24 Ag screen Non Reacti ve non reacti ve HIV Negat princess HIV-1 /HIV- 2 antib odies and HIV-1 p24 antig en were NOT detec jason. There is no labor atory evide nce of HIV infec tion. Not Available [facility] ([facility]) [address] [facility], [place], [address], 07/12/2024 10:07:33 09/19/19 25 09/18/2024 gluco se, finge rstic k, blood Blood Glucose: mg/dl 87 Not Available [address], [place], [address], 09/18/2024 14:46:22 08/08/19 25 08/07/2024 CT, abdom en + pelvi s, w/ contr ast No observ ation record ed. [facility] [address], [place], [address], 08/07/2024 13:03:29 Result Notes None recorded. Problems Name Problem SNOMED Code Status Onset Date Resolution Date Notes Provider Name and Address Organization Details Recorded Time Increased frequency of urination 055194713 Active 025 Kemi Carlos NP [address] [place], [address], [employer] 16:20:55 Skin lesion 81508434 Active 025 Kemi Carlos NP [address] [place], [address], [facility]. 5 16:32:19 Headache 52371090 Active 025 Kemi Carlos NP [address] [place], [address], [employer] 5 16:11:51 Polyuria 61221242 Active 025 Kemi Carlos NP [address] [place], [address], [employer] 5 14:54:41 Problem Notes None recorded. Medical Equipment None Reported. Allergies No known drug allergies Medications Not known to be on any medication Vitals Date Recorded Body height Body mass index (BMI) Body weight Body temperature Heart rate Oxygen saturation Oxygen saturation in Arterial blood by Pulse oximetry Systolic And Diastolic Provider Name and Address Organization Details Last Updated DateTime 5 177.8 cm 36.3 kg/m2 739086. 57 g 98.6 [degF] 66 /min 96 % 96 % 132/81 mm[Hg] Mary Franco [facility]. 5 16:17:03 Date Recorded Body height Body mass index (BMI) Body weight Heart rate Oxygen saturation Oxygen saturation in Arterial blood by Pulse oximetry Systolic And Diastolic Provider Name and Address Organization Details Last Updated DateTime 5 177.8 cm 34.2 kg/m2 536774. 78 g 54 /min 98 % 98 % 133/71 mm[Hg] Mary Franco [facility]. 5 14:46:03 Social History Question Answer Notes LastModified by Organizat ion Details LastModified Time Tobacco Smoking Status Never Smoker [facility]. 07/06/2024 15:54:01 Do You Have An Advance Directive? No [email or web address] Information n ot available 07/06/2024 Is Your Home Air Conditioned? Yes [email or web address] Information not available 07/06/2024 Do You Wear A Helmet When Biking? No [email or web address] Information not available 07/06/2024 Are You Blind Or Do You Have Difficulty Seeing? Yes [email or web address] Information n ot available 07/06/2024 What Is Your Level Of Caffeine Consumption? Heavy [email or web address] Information not available 07/06/2024 What Type Of Data Migration Consultant Do You Use? None Information not available 07/06/2024 In The 14 Days Before Symptom Onset, Have You Had Close Contact With A Laboratory-confirm ed COVID-19 While That Case Was Ill? No Information n ot available 07/06/2024 In The 14 Days Before Symptom Onset, Have You Had Close Contact With A Person Who Is Under Investigation For COVID-19 While That Person Was Ill? No [email or web address] Information not available 07/06/2024 Have You Been To An Area Known To Be High Risk For COVID-19? No [email or web address] Information not available 07/06/2024 Are You Deaf Or Do You Have Serious Difficulty Hearing? Yes [email or web address] Information not available 07/06/2024 What Type Of Diet Are You Following? REGULAR [email or web address] Information n ot available 07/06/2024 What Is The Highest Grade Or Level Of School You Have Completed Or The Highest Degree You Have Received? [id number] [email or web address] Information not available 07/06/2024 Who Is Your Employer? [employer] [email or web address] Information not available 07/06/2024 Have There Been Any Changes To Your Family Or Social Situation? No [email or web address] Information no t available 07/06/2024 Are There Any Guns Present In Your Home? Yes [email or web address] Information not available 07/06/2024 Which Of Your Hands Is Dominant? Right [email or web address] Information n ot available 07/06/2024 What Is Your Home Situation? Both Parents [email or web address] Information not available 07/06/2024 Do You Have A Medical Power Of Sales Operations Associate? No [email or web address] Information not available 07/06/2024 What Was The Date Of Your Most Recent Tobacco Screening? 09/18/2024 [email or web address] Information not available 09/18/2024 Are There Any Occupational Health Risks Where You Work? Yes [email or web address] Information not available 07/06/2024 Do You Have Any Pets? Yes [email or web address] Information not available 07/06/2024 Do You Use Protection During Sex? No [email or web address] Information not available 07/06/2024 What Is Your Relationship Status? [email or web address] Information not available 07/06/2024 Have You Repeated Any Grades? Yes [email or web address] Information not available 07/06/2024 Do You Use Your Seat Belt Or Car Seat Routinely? Yes [email or web address] Information not available 07/06/2024 Are You Sexually Active? Yes [email or web address] Information not available 07/06/2024 Do You Have Any Siblings? Yes [email or web address] Information not available 07/06/2024 Do You Have Smoke And Carbon Monoxide Detectors In Your Home? Yes [email or web address] Information not available 07/06/2024 Are You Passively Exposed To Smoke? No Information no t available 07/06/2024 Are There Any Smokers In Your House? No [email or web address] Information not available 07/06/2024 Do You Participate In Social Media? Yes [email or web address] Information not available 07/06/2024 What Types Of Sporting Activities Do You Participate In? Coon Hunting [email or web address] Information not available 07/06/2024 Do You Use Sunscreen Routinely? No [email or web address] Information not available 07/06/2024 Have You Recently Traveled Abroad? No [email or web address] Information not available 07/06/2024 Do You Have Difficulty Walking Or Climbing Stairs? No [email or web address] Information not available 07/06/2024 Do You Have Any Dietary Restrictions? No [email or web address] Information not available 07/06/2024 Sex: Unknown Functional Status Question Answer Note LastModified by Organizat ion Details LastModified Time Do you use any illicit or recreational drugs? No [email or web address] Information not available 07/06/2024 Do you or have you ever used any other forms of tobacco or nicotine? Yes [email or web address] Information not available 07/06/2024 What is your level of alcohol consumption? None [email or web address] Information not available 07/06/2024 Do you or have you ever used smokeless tobacco? Current snuff user 30+ years. Information not available 07/06/2024 Are you currently employed? Yes [email or web address] Information not available 07/06/2024 Do you have transportation difficulties? No Information not available 07/06/2024 Are you able to walk? YESWOREST [email or web address] Information not available 07/06/2024 Do you have difficulty doing errands alone? No Information not available 07/06/2024 Are you able to care for yourself independently? Yes [email or web address] Information not available 07/06/2024 Do you have difficulty dressing, bathing, grooming, or toileting? No [email or web address] Information not available 07/06/2024 Do you or have you ever used e-cigarettes or vape? Never used electronic cigarettes Information not available 07/06/2024 What is your exercise level? None [email or web address] Information not available 07/06/2024 Mental Status Question Answer Note LastModified by Organizat ion Details LastModified Time Do you feel stressed (tense, restless, nervous, or anxious, or unable to sleep at night)? [id number] [email or web address] Information not available 07/06/2024 Do you have difficulty concentrating, remembering or making decisions? No [email or web address] Information no t available 07/06/2024 Are you or have you been involved with bullying? No Information not available 07/06/2024 Family History Relationship Description Onset Age of this Age Resolved Age Notes LastModified by Organization Details LastModified Time Mother Hypercholest erolemia [email or web address] Not available 2024 15:54:01 Mother Hypertensive disorder Not available 2024 15:54:01 Unspecified Relation Heart disease [email or web address] Not available 2024 15:54:01 Maternal Grandmother Diabetes mellitus [email or web address] Not available 2024 15:54:01 Maternal Grandfather Alzheimer's disease [email or web address] Not available 2024 15:54:01 Medical History Condition Response Emergency room visit since last appointm ent. N Hospitalizations N Immunizations Vaccine Type Date Status Note Provider Nam e and Address Organization Details Recorded Time Tdap completed Mary hollingsworth [facility] [employer] 09/18/2024 15:13:21 MMR 0 completed Not Available [facility] 09/18/2024 14:27:40 Hep B, adolescent or pediatric 0 completed Not Available [employer] 09/18/2024 14:27:40 Hep B, adolescent or pediatric 03/07/200 0 completed Not Available [facility] 09/18/2024 14:27:40 Hep B, adolescent or pediatric [address] [facility] 09/18/2024 14:27:40 Td (adult), 2 Lf tetanus toxoid, preservative free, adsorbed [address] [facility] 09/18/2024 14:27:40 Past Encounters Encounter ID Performer Location Encounter Start Date Encounter Closed Date Diagnosis/Indication Diagnosis SNOMED-CT Code Diagnosis ICD10 Code Diagnosis Note [id number] Kemi Carlos NP [place] [id number] 07/06/2024 15:52:09 07/06/2024 17:03:55 Screening for cardiovascular system disease 807071763 Z13.6 Diabetes m ellitus screening 492600028 Z13.1 Adult heal th examination 010396896 Z00.00 Hepatitis C screening 41 8584704 Z11.59 HIV screening 679820397 Z11.4 Increased frequency of urination 477724808 R35.0 Skin lesion 47059058 L98 .9 Headache 15246211 R51.9 [id number] Kemi Carlos NP [place] [id number] 09/18/2024 14:26:47 09/18/2024 15:04:09 Headache 69940690 R51.9 Polyuria 47176987 R35.89 Immunization due 1220845 08 Z23 Body mass index 30+ - obesity 207854853 Z68.34 Health Concerns Section Related Observation LastModified by Organization Detai ls LastModified Time None Recorded Concern Status LastModified by Organization Details LastModified Time None Recorded Advance Directives Directive N: Payers Insurance Date Sequence Insurance Name Policy Number Policy Thomason Covered Member ID Thomason Member ID Guarantor Name 07/06/2024 1 *SELF PAY* Chasity Soto 09/25/2024 1 ESTELA [id number] Jono Soto [id number] Jono Soto Notes Date Note Type Note Provider Name and Address Organization Details Recorded Time 07/06/2024 text/html Patient presents to establish care. Lives with and two kids 12 and 15. 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 Family history of diabetes.Drinks 4-5 pops per day. (real sugar).Has had several ANGELO's and some visual changes. States sometimes he has some loss of vision peripheral vision x 10-15 minutes. 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 He states it has increased in size in the last year. Kemi Carlos NP [address] [place], [address], [email or web address], [employer] 07/09/2024 16:13:07 09/18/2024 text/html Patient presents for follow up. [...] HTN based on findings. Kemi Carlos NP [address] [place], [address], [employer] 09/24/2024 15:02:57
[2024-10-02 12:51] LABS: Hematocrit 43.6 % (42.0-52.0); Hemoglobin 14.5 g/dL (14.1-18.0); Immature Granulocytes % 0.3 %; Mean Corpuscular HGB Conc 33.3 g/dL (31.8-35.4); Mean Corpuscular Hemoglobin 27.3 pg (27.0-31.2); Mean Corpuscular Volume 82.0 fl (80-94); Nucleated Red Blood Cells % 0 %; Platelet Count 265 K/mm3 (142-424); Red Blood Count 5.32 M/mm3 (4.60-6.20); Red Cell Distribution Width-SD 35.4 fL; White Blood Count 6.1 K/mm3 (4.8-10.8)
[2024-10-02 13:02] LABS: Anion Gap 11.6 mEq/L (5-15); Blood Urea Nitrogen 13 mg/dl (9-20); Calcium 9.9 mg/dl (8.4-10.2); Carbon Dioxide 26 mmol/L (22.0-30.0); Chloride 104 mmol/L (98-107); Creatinine Clearance Estimated 152 mL/min (50-200); Creatinine,Serum 1.00 mg/dl (0.66-1.25); Estimated Glomerular Filt Rate 84 ml/min (>60); GFR (African American) 102 ML/MIN (>60); Glucose 81 mg/dl (74-100); Potassium 3.6 mmoL/L (3.5-5.1); Sodium 138 mmol/L (136-145)
== END 2024-10-02 23:59 | disposition home or self-care (01) ==
LOC: PREOP 11:58
PROVIDERS: PCP Nurse Practitioner Family; Visit Provider Surgery
DX: Z01.812 Encounter for preprocedural laboratory examination (principal)
CPT/HCPCS: 80048; 85025

== ENCOUNTER 2024-10-12 06:02 | Day surgery (SDC) | payer OTHER, SELFPAY ==
[2024-10-02 13:04] VITALS: BMI 30.9
[2024-10-12] VITALS (10 sets, daily range): BP systolic 107–128; BP diastolic 65–75; PULSE 54–66; RESP 16–20; TEMP 36.1–36.7; O2SAT 94–100; BMI 30.9
[2024-10-12] MEDS: LACTATED RINGERS 1000ML 1,000 ML 25 ML IV (06:37)
--- NOTE | 2024-10-12 07:00 | EXP.ANES.CKL ---
[facility] Disclaimer: The information contained in this section may have been updated after the patient was seen, as this information can be updated by other users. Medical History No significant past medical history Surgical History No history of previous surgery Family History Other Family history of diabetes mellitus Social History (Updated 10/12/24 @ 06:21 by Roxi Garcia RN) Smoking Status: Former smoker tobacco type: smokeless tobacco alcohol intake: never substance use type: denies use current occupational status: employed Travel in the last 8 weeks?: None [facility] Anesthesia Checklist Patient Identification Patient Identification: Arm Band Structural Data Admitted From: Home Planned Operative Procedure/s: Excision of Left Lower Quadrant Lipoma Consent for Planned Operative Procedure(s) Verified: Yes Verified Documents: Surgical Consent and History and Physical NPO Status Verified Time NPO: 00:00 Additional verifications Anesthesia Reactions: No (has not had anesthessia before) Hx Blood Transfusions: No Blood Transfusion Reaction: No Airway Assessment Mallampati Score:: Class II C-Spine Mobility Assessed: Yes TMJ Mobility Assessed: Yes Dentition: Good Dentition Neurological Assessment Level of Consciousness: Awake, Alert and Appropriate Anesthesia Plan Anesthesia Risk discussed: Yes Anesthesia Plan: Verified ASA Class: II Anesthesia Type: General
[2024-10-12] MEDS: 0.9 % SODIUM CHLORIDE 100 ML 25 ML IV (07:03)
[2024-10-12] MEDS: LIDOCAINE 1% 20ML MDV 20 ML (07:18)
--- NOTE | 2024-10-12 07:49 | P.OP_ITS ---
Date of procedure: 10/12/24 Pre-op Diagnosis:: Presumed left lower quadrant lipoma Post-op Diagnosis:: Same Procedure performed:: Excision of lipoma left lower quadrant, excisional length 7.5 cm (intermediate complexity closure) Surgeon:: Alberto Reyes MD [employer] CONSULTANT:: Jimbo Ignacio Anesthesia: local and LMA Estimated blood loss (mL): 5 Operative findings:: Consistent with moderately large lipoma, approximately 8 cm Operative note:: Patient was taken the operating room. He was given preoperative intravenous antibiotic. In the operating room he was placed in a supine position. General anesthesia was induced via LMA. The area was prepped and draped in the standard surgical fashion. Boundaries of the palpable lesion was marked with a skin marker. Skin was then marked with a marker for planned incision along normal skin lines. Local anesthetic was infiltrated. Skin incision was made. Dissection was carried down through the dermis and relatively well-circumscribed fatty tissue consistent with lobulated lipoma was encountered. This was dissected free from the dermis and surrounding tissues with combination of Metzenbaum dissection and electrocautery. It was excised in its entirety and sent off as a specimen. There was some additional focus of prominent fatty tissue laterally which was excised and sent as specimen as well. Additional local anesthetic was infiltrated. Hemostasis was achieved with electrocautery. Deep dermal tissues were closed with interrupted 2-0 Vicryl. Skin was closed with 4-0 Monocryl in a running subcuticular fashion. Steri-Strips and dressings were applied. Condition: stable Disposition: PACU Complications:: None immediately apparent
--- NOTE | 2024-10-12 07:55 | EXP.ANES.I ---
[facility] Anesthesia Record Part I Anesthesia Record I Intake, IV Amount: 600 Hydration: Adequate Estimated blood loss (mL): 5 Urine output (mL): 0 Blood Products used (#): none Blood Pressure: 121/75 SaO2: 94 Pulse Rate: 56 Airway Patency: Patent Respiratory Rate: 16 Temperature: 98 F Patient is:: Drowsy and Stable Stable to PACU at:: 07:52
--- NOTE | 2024-10-12 11:33 | EXP.ANES.II ---
[facility] Anesthesia Record Part II Anesthesia Record Part II Discharge Time: 08:22 Destination: Surgical Day Care (OP Surgery) PACU nurse assessment reviewed?: Yes Patient Condition:: Good Anesthesia Complications:: None Swallowing reflex intact?: Yes Airway Patency: Patent Cyanosis?: No Blood Pressure: 120/72 SaO2: 98 Respiratory Rate: 18 Pulse Rate: 63 Temperature: 98 F Mental Status: Alert & Oriented Pain level:: 0 Nausea and/or vomitting:: None Intake, IV Amount: 0 Hydration: Adequate
== END 2024-10-12 08:50 | disposition home or self-care (01) ==
PROVIDERS: PCP Nurse Practitioner Family; Visit Provider Surgery
PROC: (CPT 13101; principal; 2024-10-12 07:30)
DX: D17.1 Benign lipomatous neoplasm of skin and subcutaneous tissue of trunk (principal); Z87.891 Personal history of nicotine dependence
CPT/HCPCS: 13101; 13102; 22903; 96374; J0690; J1100; J2003; J2250; J2405; J2704; J2795; J3010; J7120